=== PATIENT | male | born 1985 | race Caucasian/White ===

== ENCOUNTER 2020-08-11 12:37 | Outpatient (RCR) | payer OTHER, SELFPAY | END 2020-08-11 23:59 | disposition home or self-care (01) | LOC: ANHAUDIO 12:37 | PROVIDERS: PCP Physician Assistant; Visit Provider Physician Assistant | DX: Z46.1 Encounter for fitting and adjustment of hearing aid (principal) | CPT/HCPCS: V5014 ==